=== PATIENT | female | born 1990 | race Hispanic/Latino ===

== ENCOUNTER 2018-06-18 13:18 | Emergency (ER) | payer OTHER ==
--- OUTSIDE RECORDS SUMMARY | 2018-06-18 13:20 | XMS REPORT | Continuity of Care Document ---
:1990 Author Organization Interface Problems Problem Status Onset Date Classification Date Comments Source Reported Medications Medication Details Route Status Patient Ordering Order Source Instructions Provider Date Allergies, Adverse Reactions, Alerts Substance Category Reaction Severity Reaction Status Date Comments Source type Reported Immunizations Immunization Date Given Site Status Last Updated Comments Source Results Order Results Value Reference Date Interpretation Comments Source Name Range Vital Signs Vital Sign Value Date Comments Source Encounters Location Location Encounter Encounter Reason Attending ADM DC Status Source Details Type Number For Provider Date Date Visit Outpatient [id number] [facility] 08/28 [facility] [facility] [id number] NURSE 09/23 [facility] VISIT [place] [facility] [id number] ANALI 12/24 [facility] YU Devin Procedures Procedure Code Date Perfomer Comments Source
[2018-06-18 14:05] LABS: Urine Blood NEGATIVE (NEG); Urine Glucose NEGATIVE (NEG); Urine Protein NEGATIVE (NEG); Urine Specific Gravity 1.025 (1.005-1.030)
[2018-06-18 14:34] LABS: Absolute Monocytes 0.5 K/uL (0.1-1.3); Absolute Neutrophil 6.3 K/uL (1.8-8.0); Basophils % 0.2 % (0-1.3); Lymphocytes % 22.7 % (15.3-44.8); MCH 29.5 pg (27.0-35.0); MCV 85.5 fL (80-100); MPV 7.9 fL (7.6-11.3); RBC Red Blood Cell Count 4.56 M/uL (3.86-4.86)
[2018-06-18 14:55] LABS: BUN Blood Urea Nitrogen 3 mg/dL (7-18); Bicarbonate 26 mmol/L (21-32); Glucose Level 88 mg/dL (74-106); HCG, Quantitative 37793 mIU/mL (1-3); Potassium 3.7 mmol/L (3.5-5.1); Sodium Level 138 mmol/L (136-145)
[2018-06-18] MEDS ORDERED: ACETAMINOPHEN 500 MG TAB ONE (15:02)
--- NOTE | 2018-06-18 15:12 | RAD REPORT ---
EXAM DESCRIPTION: US - 1St Trimest Single 1St Fetus - 06/18/2018 2:53 pm CLINICAL HISTORY: with pelvic pain COMPARISON: None FINDINGS: The uterus measures 14 x 8 x 10 centimeters. Single live intrauterine is present in variable presentation. [place]-rump length 7.7 centimeters. Cardiac activity 141 beats per minute. Amniotic fluid is normal. The placenta is posterior A myometrial contraction was visualized The ovaries are normal in size and echotexture. No significant free fluid is noted IMPRESSION: Single live intrauterine with an estimated gestational age 13 weeks 6 days ONI 12/18/2018
[2018-06-18] MEDS ORDERED: NA CHLORIDE 0.9% 1,000 ML ONE (15:41)
--- NOTE | 2018-06-18 15:48 | EDPHYS ---
Physician Documentation [facility] Name: Amy Jackson Age: 27 yrs Sex: Female : 1990 Arrival Date: 06/18/2018 Time: 13:21 Bed 15 Private MD: None, None ED Physician Regino Lam HPI: 06/18 13:59 This 27 yrs old Female presents to ER via Ambulatory with complaints of 13 Wks jr8 , Abdominal Pain. 13:59 Onset: The symptoms/episode began/occurred acutely, 3 day(s) ago. Modifying factors: jr8 The symptoms are alleviated by nothing, the symptoms are aggravated by nothing. Associated signs and symptoms: Pertinent positives: vaginal bleeding. Severity of symptoms: At their worst the symptoms were mild, in the emergency department the symptoms have improved. The patient has experienced a previous episode. The patient has been recently seen by a physician:. Patient stated that she has had miscarry in past. Stated that 3 days ago started to have spotting that has improved but now having abdominal pain. Wants to make sure she is not miscarrying again . 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 - Social history:: Smoking status: Patient/guardian denies using tobacco. - Ebola Screening: : Patient negative for fever greater than or equal to 101.5 degrees Fahrenheit, and additional compatible Ebola Virus Disease symptoms Patient denies exposure to infectious person Patient denies travel to an Ebola-affected area in the 21 days before illness onset No symptoms or risks identified at this time. ROS: 13:59 Eyes: Negative for injury, pain, redness, and discharge, ENT: Negative for injury, jr8 pain, and discharge, Neck: Negative for injury, pain, and swelling, Cardiovascular: Negative for chest pain, palpitations, and edema, Respiratory: Negative for shortness of breath, cough, wheezing, and pleuritic chest pain, Abdomen/GI: Negative for abdominal pain, nausea, vomiting, diarrhea, and constipation, Back: Negative for injury and pain, MS/Extremity: Negative for injury and deformity, Skin: Negative for injury, rash, and discoloration, Neuro: Negative for headache, weakness, numbness, tingling, and seizure. 13:59 : Positive for pelvic pain, vaginal bleeding, Negative for urinary symptoms, vaginal discharge, vaginal itching. Exam: 13:59 Eyes: Pupils equal round and reactive to light, extra-ocular motions intact. Lids and jr8 lashes normal. Conjunctiva and sclera are non-icteric and not injected. Cornea within normal limits. Periorbital areas with no swelling, redness, or edema. ENT: Nares patent. No nasal discharge, no septal abnormalities noted. Tympanic membranes are normal and external auditory canals are clear. Oropharynx with no redness, swelling, or masses, exudates, or evidence of obstruction, uvula midline. Mucous membranes moist. Neck: Trachea midline, no thyromegaly or masses palpated, and no cervical lymphadenopathy. Supple, full range of motion without nuchal rigidity, or vertebral point tenderness. No Meningismus. Cardiovascular: Regular rate and rhythm with a normal S1 and S2. No gallops, murmurs, or rubs. Normal PMI, no JVD. No pulse deficits. Respiratory: Lungs have equal breath sounds bilaterally, clear to auscultation and percussion. No rales, rhonchi or wheezes noted. No increased work of breathing, no retractions or nasal flaring. Abdomen/GI: Soft, non-tender, with normal bowel sounds. No distension or tympany. No guarding or rebound. No evidence of tenderness throughout. Back: No spinal tenderness. No costovertebral tenderness. Full range of motion. Skin: Warm, dry with normal turgor. Normal color with no rashes, no lesions, and no evidence of cellulitis. MS/ Extremity: Pulses equal, no cyanosis. Neurovascular intact. Full, normal range of motion. Neuro: Awake and alert, GCS 15, oriented to person, place, time, and situation. Cranial nerves II-XII grossly intact. Motor strength 5/5 in all extremities. Sensory grossly intact. Cerebellar exam normal. Normal gait. Vital Signs: 13:27 BP 124 / 77; Pulse 80; Resp 19; Temp 97.5; Pulse Ox 99% on R/A; Weight 71.21 kg; Height aj 5 ft. 3 in. (160.02 cm); 14:33 BP 104 / 68; Pulse 62; Resp 12; Temp 97.9; Pulse Ox 99% on R/A; Pain 7/10; ch 15:29 BP 110 / 54; Pulse 80; Resp 15; Pulse Ox 100% on R/A; ch 15:52 Pulse 70; Resp 14; Temp 97.9; Pulse Ox 99% on R/A; Pain 4/10; ch 13:27 Body Mass Index 27.81 (71.21 kg, 160.02 cm) aj MDM: 13:30 Patient medically screened. 8 15:19 Data reviewed: vital signs, nurses notes, lab test result(s), radiologic studies, 8 ultrasound, and as a result, I will discharge patient. Data interpreted: Pulse oximetry: on room air is 99 %. Interpretation: normal. Counseling: I had a detailed discussion with the patient and/or guardian regarding: the historical points, exam findings, and any diagnostic results supporting the discharge/admit diagnosis, lab results, radiology results, the need for outpatient follow up, an OB/Gyne specialist, to return to the emergency department if symptoms worsen or persist or if there are any questions or concerns that arise at home. 15:45 Response to treatment: the patient's symptoms have resolved after treatment, patient is jr8 well hydrated. 06/18 13:32 Order name: Quantitative Hcg; Complete Time: 14:57 [facility] 06/18 13:32 Order name: Abo/rh Typing; Complete Time: 15:48 [facility] 06/18 13:32 Order name: Basic Metabolic Panel; Complete Time: 14:57 06/18 13:32 Order name: CBC with Diff; Complete Time: 14:45 [facility] 06/18 13:50 Order name: Urine Dipstick--Ancillary (enter results); Complete Time: 14:22 06/18 13:50 Order name: Urine --Ancillary (enter results); Complete Time: 14:22 06/18 13:32 Order name: Urine Test (obtain specimen); Complete Time: 14:30 [facility] 06/18 13:32 Order name: IV Saline Lock; Complete Time: 14:30 jr06/18 13:32 Order name: Labs collected and sent; Complete Time: 14:30 jr8 06/18 13:32 Order name: NPO; Complete Time: 14:30 [facility] 06/18 14:53 Order name: 1St Trimest Single 1St Fetus; Complete Time: 15:19 [facility] 06/18 13:32 Order name: Urine Dipstick-Ancillary (obtain specimen); Complete Time: 14:30 jr8 Administered Medications: 15:15 Drug: Tylenol 1000 mg Route: PO; 15:52 Follow up: Response: No adverse reaction; Marked relief of symptoms 15:30 Drug: NS 0.9% 1000 ml Route: IV; Rate: 1000 ml; Site: right antecubital; 15:52 Follow up: IV Status: Completed infusion; IV Intake: 1000ml Disposition: 16:17 Co-signature as Attending Physician, Regino Lam MD. rn Disposition: 06/18/18 15:48 Discharged to Home. Impression: Primary inadequate contractions, Threatened . - Condition is Stable. - Discharge Instructions: Threatened Miscarriage, Vaginal Bleeding During , First Trimester, Pelvic Rest. - Work release form, Medication Reconciliation Form, Thank You Letter, Antibiotic Education, Prescription Opioid Use form. - Follow up: Private Physician; When: 2 - 3 days; Reason: Recheck today's complaints, Continuance of care, Re-evaluation by your physician. - Problem is new. - Symptoms have improved. Signatures: Dispatcher [employer] [facility] Karen Woo RN RN ch Myers, Amanda, RN RN aj Nieto, Roman, MD MD rn Roszak, Josh, PA [place] jr8 Corrections: (The following items were deleted from the chart) 14:53 14:23 Transvaginal Ob+US.RAD.BRZ ordered. [facility] 16:01 15:48 06/18/2018 15:48 Discharged to Home. Impression: Primary inadequate contractions; ch Threatened . Condition is Stable. Forms are Medication Reconciliation Form, Thank You Letter, Antibiotic Education, Prescription Opioid Use. Follow up: Private Physician; When: 2 - 3 days; Reason: Recheck today's complaints, Continuance of care, Re-evaluation by your physician. Problem is new. Symptoms have improved. jr8
--- NOTE | 2018-06-18 15:48 | ER ---
Nurse's Notes [facility] Name: Amy Jackson Age: 27 yrs Sex: Female : 1990 Arrival Date: 06/18/2018 Time: 13:21 Bed 15 Private MD: None, None Diagnosis: Primary inadequate contractions;Threatened Presentation: 06/18 13:25 Presenting complaint: Patient states: Spotting since Friday. Seen by PCP just [facility] and aj Beta HCG drawn, instructed to come back for follow up in 2 days. Transition of care: patient was not received from another setting of care. Onset of symptoms was June 14, 2018. Risk Assessment: Do you want to hurt yourself or someone else? Patient reports no desire to harm self or others. Initial Sepsis Screen: Does the patient meet any 2 criteria? No. Patient's initial sepsis screen is negative. Does the patient have a suspected source of infection? No. Patient's initial sepsis screen is negative. Care prior to arrival: Beta HCG drawn at [facility] office. 13:25 Method Of Arrival: Ambulatory 13:25 Acuity: ROSA 3 aj Triage Assessment: 13:27 General: Appears in no apparent distress. comfortable, Behavior is calm, cooperative, aj appropriate for age. Pain: Complains of pain in groin and suprapubic area. Neuro: Level of Consciousness is awake, alert, obeys commands, Oriented to person, place, time, situation, Appropriate for age. Respiratory: Airway is patent Respiratory effort is even, unlabored, Respiratory pattern is regular, symmetrical. GI: No signs and/or symptoms were reported involving the gastrointestinal system. : Reports pain in suprapubic area vaginal bleeding that is spotty. Derm: Skin is intact, is healthy with good turgor, Skin is pink, warm \T\ dry. normal. 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 - Social history:: Smoking status: Patient/guardian denies using tobacco. - Ebola Screening: : Patient negative for fever greater than or equal to 101.5 degrees Fahrenheit, and additional compatible Ebola Virus Disease symptoms Patient denies exposure to infectious person Patient denies travel to an Ebola-affected area in the 21 days before illness onset No symptoms or risks identified at this time. Screenin:33 Abuse screen: Denies threats or abuse. Denies injuries from another. Nutritional ch screening: No deficits noted. Tuberculosis screening: No symptoms or risk factors identified. Fall Risk None identified. Assessment: 14:33 General: Appears in no apparent distress. comfortable, Behavior is calm, cooperative, ch appropriate for age. Neuro: No deficits noted. Respiratory: Airway is patent Respiratory effort is even, unlabored. GI: Bowel sounds present X 4 quads. Abd is soft and non tender X 4 quads. Reports lower abdominal pain. : Reports cramping, vaginal bleeding that is. Derm: Skin is pink, warm \T\ dry. Musculoskeletal: No signs and/or symptoms reported regarding the musculoskeletal system. 15:29 Reassessment: Patient appears in no apparent distress at this time. Patient and/or ch family updated on plan of care and expected duration. Pain level reassessed. Patient is alert, oriented x 3, equal unlabored respirations, skin warm/dry/pink. Patient states feeling better. 15:52 Reassessment: Patient appears in no apparent distress at this time. Patient and/or ch family updated on plan of care and expected duration. Pain level reassessed. Patient is alert, oriented x 3, equal unlabored respirations, skin warm/dry/pink. Patient states feeling better. Patient states symptoms have improved. 16:01 Reassessment:. Vital Signs: 13:27 BP 124 / 77; Pulse 80; Resp 19; Temp 97.5; Pulse Ox 99% on R/A; Weight 71.21 kg; Height aj 5 ft. 3 in. (160.02 cm); 14:33 BP 104 / 68; Pulse 62; Resp 12; Temp 97.9; Pulse Ox 99% on R/A; Pain 7/10; ch 15:29 BP 110 / 54; Pulse 80; Resp 15; Pulse Ox 100% on R/A; ch 15:52 Pulse 70; Resp 14; Temp 97.9; Pulse Ox 99% on R/A; Pain 4/10; ch 13:27 Body Mass Index 27.81 (71.21 kg, 160.02 cm) aj ED Course: 13:21 Patient arrived in ED. mr 13:22 None, None is Private Physician. mr 13:27 Triage completed. aj 13:27 Arm band placed on right wrist. Patient placed in an exam room. aj 13:30 Josiah Bobby PA is PHCP. jr8 13:30 Regino Lam MD is Attending Physician. jr8 14:29 Karen Woo, CHRISTOPHER is Primary Nurse. ch 14:30 Patient taken to ultrasound. via wheelchair. hr 14:33 Initial lab(s) drawn, by md, sent to lab. Urine collected: clean catch specimen, clear. mh5 Inserted saline lock: 20 gauge in right antecubital area, using aseptic technique. Blood collected. 14:33 Quantitative Hcg Sent. 5 14:33 Abo/rh Typing Sent. 5 14:33 Basic Metabolic Panel Sent. 5 14:34 Patient has correct armband on for positive identification. Placed in gown. Bed in low mh5 position. Call light in reach. Side rails up X 1. Adult w/ patient. Warm blanket given. Pulse ox on. NIBP on. 14:34 CBC with Diff Sent. 5 14:54 1St Trimest Single 1St Fetus In Process Unspecified. EDMS 14:57 Ultrasound completed. Patient tolerated well. Patient moved back from ultrasound. hr 15:52 No apparent distress. Resting quietly. ch 15:52 No provider procedures requiring assistance completed. IV discontinued, intact, ch bleeding controlled, No redness/swelling at site. Pressure dressing applied. Administered Medications: 15:15 Drug: Tylenol 1000 mg Route: PO; ch 15:52 Follow up: Response: No adverse reaction; Marked relief of symptoms ch 15:30 Drug: NS 0.9% 1000 ml Route: IV; Rate: 1000 ml; Site: right antecubital; ch 15:52 Follow up: IV Status: Completed infusion; IV Intake: 1000ml ch Intake: 15:52 IV: 1000ml; Total: 1000ml. ch Outcome: 15:48 Discharge ordered by . [facility] 15:52 Discharged to home ambulatory. 15:52 Condition: stable 15:52 Discharge instructions given to patient, family, Instructed on discharge instructions, follow up and referral plans. Demonstrated understanding of instructions, follow-up care. 16:01 Patient left the ED. Signatures: Dispatcher [employer] Karen West RN RN ch Myers, Amanda, RN RN aj Rivera, Maria mr Paulo, Josiah Patton PA PA Radha Esparza [facility] Corrections: (The following items were deleted from the chart) 14:53 14:49 In radiology for Transvaginal Ob+US.RAD.SANTOS. ZHENG CALZADA
== END 2018-06-18 16:01 | disposition home or self-care (01) ==
LOC: ER 13:18
DX: O20.0 Threatened abortion (principal); Z3A.13 13 weeks gestation of pregnancy
CPT/HCPCS: 36415; 76801; 80048; 81003; 81025; 84702; 85025; 86900; 86901; 99284; J7030

== ENCOUNTER 2023-10-20 16:16 | Emergency (ER) | payer OTHER, SELFPAY ==
[2023-10-20 17:23] LABS: Absolute Lymphocytes (CBC) 2.5 K/uL (0.7-4.9); Lymphocytes % 25.3 % (15.3-44.8); MCV 78.9 fL (80-100); MPV 7.8 fL (7.6-11.3); Platelets 331 thou/uL (152-406); RBC Red Blood Cell Count 4.44 M/uL (3.86-4.86)
[2023-10-20 17:29] LABS: Potassium 3.6 mEq/L (3.5-5.1)
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
[2023-10-20] MEDS ORDERED: KETOROLAC 30 MG/ML INJ ONE (18:25)
[2023-10-20 18:46] VITALS: BP 137/80; TEMP 98.2; O2SAT 99
== END 2023-10-20 18:27 | disposition home or self-care (01) ==
LOC: ER 16:16
DX: R07.9 Chest pain, unspecified (principal); M54.2 Cervicalgia; R03.0 Elevated blood-pressure reading, without diagnosis of hypertension
CPT/HCPCS: 85025; 80048; 36415; 84703; 70450; 72125; 71260; 74177; 96374; 99284; Q9967